=== PATIENT | male | born 1930 | race Caucasian/White ===

== ENCOUNTER 2020-04-05 09:18 | Emergency (ER) | payer OTHER ==
[~2020-04-05] VITALS: Ht 170.2 cm; Wt 90.7 kg
[~2020-04-05 09:18] MED LIST: ALBU90OI61 INH; Adult Low Dose81 MG PO; Advil200 M1 PO; Amlodipine Besy10 MG PO; DOXA4 PO; Doxazosin Mesyla8 MG PO; Duoneb 2.5-0.5 M3 ML INH; FENO48; FINA5 PO; FLUSAL2505; FLUSAL2505 INH; Fish Oil300 MG; IBUPROFEN PM S1 EACH PO; LEVO750 PO; LOSHYD100 PO; MECL25 PO; MELO7.5 PO; MONT10T PO; Mucinex100 MG; Omeprazole20 M1 PO; Prednisone50 MG PO; TRAM50 PO; Toprol Xl50 MG PO; Toviaz8 MG PO
== END 2020-04-05 11:24 | disposition home or self-care (01) ==
LOC: ER 09:18
DX: S31.114A Laceration without foreign body of abdominal wall, left lower quadrant without penetration into peritoneal cavity, initial encounter (principal); J44.9 Chronic obstructive pulmonary disease, unspecified; I10 Essential (primary) hypertension; K21.9 Gastro-esophageal reflux disease without esophagitis; E78.5 Hyperlipidemia, unspecified; F03.90 Unspecified dementia, unspecified severity, without behavioral disturbance, psychotic disturbance, mood disturbance, and anxiety; Z88.0 Allergy status to penicillin; Z88.8 Allergy status to other drugs, medicaments and biological substances; Z79.899 Other long term (current) drug therapy; Z86.73 Personal history of transient ischemic attack (TIA), and cerebral infarction without residual deficits; Z79.52 Long term (current) use of systemic steroids; W06.XXXA Fall from bed, initial encounter
CPT/HCPCS: 99283